=== PATIENT | female | born 1970 | race Caucasian/White ===

== ENCOUNTER 2018-05-25 21:31 | Emergency (ER) | payer SELFPAY ==
[~2018-05-25] VITALS: Ht 162.6 cm; Wt 126.0 kg
[~2018-05-25 21:31] MED LIST: AMLO10TA8 PO; LEVO137T3 PO; OMEP40CA3 PO
[2018-05-25 21:32] VITALS: BP 159/91
[2018-05-25] MEDS ORDERED: BENZONATATE 100 MG CAPSULE ONE (21:51)
[2018-05-25] MEDS ORDERED: BENZONATATE 100 MG CAPSULE PO ONE (22:00)
[2018-05-26] MEDS ORDERED: PROMETHAZINE/COD. 10MG/6.25MG/5 ML ORAL SOL PO ONE
== END 2018-05-26 01:13 | disposition home or self-care (01) ==
LOC: ED 22:27
DX: R05 Cough (principal); R06.02 Shortness of breath; R09.81 Nasal congestion; I10 Essential (primary) hypertension; E03.9 Hypothyroidism, unspecified
CPT/HCPCS: 71046; 99283